=== PATIENT | female | born 1980 | race Caucasian/White ===

== ENCOUNTER 2017-10-20 14:30 | Emergency (ER) | payer MEDICARE ==
[~2017-10-20] VITALS: Ht 157.5 cm; Wt 67.5 kg
[~2017-10-20 14:30] MED LIST: ACET325T14 PO; ALPR1TAB6 PO; AMLO5TAB4 PO; CARV12.543 PO; CEFD300C37 PO; CIPR250T27 PO; CLON0.1T PO; DOXA2TAB9 PO; FURO-93 PO; HYDR-3240 PO; LEVO750T6 PO; LISI-167 PO; METO50TA82 PO; MYCO500T PO; TACR1CAP4 PO; TRAM-47 PO
[2017-10-20] MEDS ORDERED: SODI325T PO (14:50)
[2017-10-20 16:35] VITALS: BP 139/96
== END 2017-10-20 16:43 | disposition home or self-care (01) ==
LOC: ED 16:35
DX: S90.511A Abrasion, right ankle, initial encounter (principal); S20.312A Abrasion of left front wall of thorax, initial encounter; I10 Essential (primary) hypertension; W01.0XXA Fall on same level from slipping, tripping and stumbling without subsequent striking against object, initial encounter; Y93.89 Activity, other specified; Y92.009 Unspecified place in unspecified non-institutional (private) residence as the place of occurrence of the external cause; Y99.8 Other external cause status
CPT/HCPCS: 99284

== ENCOUNTER 2019-01-10 22:12 | Inpatient (IN) | payer MEDICARE, MEDICAID ==
[~2019-01-10] VITALS: Ht 157.5 cm; Wt 71.0 kg
[2019-01-15 13:40] VITALS: BP 148/107
== END 2019-01-15 16:00 | disposition home or self-care (01) | DRG 698 ==
LOC: ED 01-11 00:29 → EDIP 01-11 00:30 → 4WST 01-11 01:21
PROVIDERS: ADMIT Family Medicine; ATTEND Family Medicine
DX: T86.12 Kidney transplant failure (principal); N17.0 Acute kidney failure with tubular necrosis; B02.7 Disseminated zoster; E87.2 Acidosis; I12.0 Hypertensive chronic kidney disease with stage 5 chronic kidney disease or end stage renal disease; I42.0 Dilated cardiomyopathy; B02.29 Other postherpetic nervous system involvement; M32.14 Glomerular disease in systemic lupus erythematosus; D64.9 Anemia, unspecified; E21.3 Hyperparathyroidism, unspecified; E87.6 Hypokalemia; I34.0 Nonrheumatic mitral (valve) insufficiency; Y83.0 Surgical operation with transplant of whole organ as the cause of abnormal reaction of the patient, or of later complication, without mention of misadventure at the time of the procedure; Z78.9 Other specified health status; Z76.82 Awaiting organ transplant status; Z80.0 Family history of malignant neoplasm of digestive organs; Z83.2 Family history of diseases of the blood and blood-forming organs and certain disorders involving the immune mechanism; Z91.14 Patient's other noncompliance with medication regimen; Z95.810 Presence of automatic (implantable) cardiac defibrillator; Z88.6 Allergy status to analgesic agent; Z88.8 Allergy status to other drugs, medicaments and biological substances
CPT/HCPCS: 36415; 71046; 80048; 80053; 81001; 82306; 82728; 83540; 83550; 83735; 83880; 83970; 84100; 84550; 85025; 86361; 87799; 93005; 96374; 96375; G0378; J0133; J0881; J1170; J1644; J2405; J7507; Q0162; J7030; J7517; Q0163; Q0177